=== PATIENT | female | born 1995 | race Caucasian/White ===

== ENCOUNTER 2018-02-26 11:04 | Emergency (ER) | payer OTHER ==
[~2018-02-26] VITALS: Ht 162.6 cm; Wt 50.0 kg
[~2018-02-26 11:04] MED LIST: GI COCKTAIL PO; PROT40TA PO
[2018-02-26 11:15] VITALS: BP 115/70; PULSE 68; RESP 15; TEMP 97.5; O2SAT 100
[2018-02-26] MEDS ORDERED: diphenhydrAMINE HCL 50 MG/ML VIAL IV PUSH ONE (11:30)
[2018-02-26] MEDS ORDERED: PROCHLORPERAZINE INJ 10 MG/2 ML VIAL IV PUSH ONE (11:30)
[2018-02-26] MEDS ORDERED: SODIUM CHLOR 0.9% 1000 ML INJ 1,000 ML IV ONE (11:30)
--- NOTE | 2018-02-26 11:43 | PD ---
HPI . Abdominal pain Chief Complaint: GI Complaint Time Seen by Provider: 11:28 Travel History International Travel<30 days: No Contact w/Intl Traveler<30days: No Traveled to known affect area: No History of Present Illness HPI This patient presents with chief complaint of abdominal pain. Acute onset was today. Progression is constant. It is upper abdominal pain which she describes as cramping and rates at 8/10. Associated symptoms include nausea and one loose stool. PFSH Past Medical History Medical History: Denies Significant Hx Diminished Hearing: No GERD: Yes (HX IBS AND GASTRITIS) Immunizations Current: Yes (UTD WITH SCHOOL SHOTS.) ?: Not LMP: 01/2018 Past Surgical History Surgical History: No Previous Surgery Social History Alcohol Use: No Tobacco Use: Yes (10/26 PPD) Substance Use: No Allergies-Medications (Allergen,Severity, Reaction): Coded Allergies: No Known Allergies (Verified Adverse Reaction, Unknown, 02/26/18) Reported Meds & Prescriptions Reported Meds & Active Scripts Active No Active Prescriptions or Reported Medications Review of Systems Except as stated in HPI: all other systems reviewed are Neg General / Constitutional: No: Fever, Chills Gastrointestinal: Positive: Nausea, Diarrhea, Abdominal Pain, No: Vomiting Genitourinary: No: Urgency, Frequency, Dysuria Physical Exam Narrative GENERAL: Patient is lying on the bed moaning with an older female at the bedside. SKIN: warm/dry. Normal color and turgor. HEAD: Normocephalic. Atraumatic. EYES: Pupils equal and round. No scleral icterus. No injection or drainage. ENT: No nasal bleeding or discharge. Mucous membranes pink and moist. NECK: Trachea midline. Full range of motion without pain.. CARDIOVASCULAR: Regular rate and rhythm. Heart sounds normal. RESPIRATORY: No accessory muscle use. Clear to auscultation. Breath sounds equal bilaterally. GASTROINTESTINAL: Abdomen soft and nontender to deep palpation using the stethoscope. However, when palpating with my hand, she guards and complains of diffuse tenderness. Bowel sounds present. Nondistended. MUSCULOSKELETAL: No obvious deformities. NEUROLOGICAL: Awake and alert. No obvious cranial nerve deficits. Motor grossly within normal limits. Normal speech. PSYCHIATRIC: Appropriate mood and affect; insight and judgment normal. Data Data Last Documented VS Vital Signs Date Time Temp Pulse Resp B/P (MAP) Pulse Ox O2 Delivery O2 Flow Rate FiO2 5/7/18 11:15 97.5 68 15 115/70 (85) 100 Orders Orders Ed Urine Pregnancytest Poc (02/26/18 11:28) ^ Saline Lock (02/26/18 11:28) Diphenhydramine Inj (Benadryl Inj) (02/26/18 11:30) Prochlorperazine Inj (Compazine Inj) (02/26/18 11:30) Sodium Chlor 0.9% 1000 Ml Inj (Ns 1000 M (02/26/18 11:30) Comprehensive Metabolic Panel (02/26/18 11:38) Complete Blood Count With Diff (02/26/18 11:38) Lipase (02/26/18 11:38) Ct Abd/Pel W Iv Contrast(Rout) (02/26/18 12:35) Iohexol 350 Inj (Omnipaque 350 Inj) (02/26/18 13:28) Labs Laboratory Tests Test 02/26/18 11:55 White Blood Count 20.6 TH/MM3 Red Blood Count 4.77 MIL/MM3 Hemoglobin 14.0 GM/DL Hematocrit 40.8 % Mean Corpuscular Volume 85.6 FL Mean Corpuscular Hemoglobin 29.4 PG Mean Corpuscular Hemoglobin Concent 34.4 % Red Cell Distribution Width 13.0 % Platelet Count 193 TH/MM3 Mean Platelet Volume 9.6 FL Neutrophils (%) (Auto) 88.0 % Lymphocytes (%) (Auto) 6.3 % Monocytes (%) (Auto) 5.2 % Eosinophils (%) (Auto) 0.1 % Basophils (%) (Auto) 0.4 % Neutrophils # (Auto) 18.1 TH/MM3 Lymphocytes # (Auto) 1.3 TH/MM3 Monocytes # (Auto) 1.1 TH/MM3 Eosinophils # (Auto) 0.0 TH/MM3 Basophils # (Auto) 0.1 TH/MM3 CBC Comment DIFF FINAL Differential Comment Blood Urea Nitrogen 12 MG/DL Creatinine 0.74 MG/DL Random Glucose 121 MG/DL Total Protein 6.9 GM/DL Albumin 4.4 GM/DL Calcium Level 9.0 MG/DL Alkaline Phosphatase 57 U/L Aspartate Amino Transf (AST/SGOT) 14 U/L Alanine Aminotransferase (ALT/SGPT) 18 U/L Total Bilirubin 0.3 MG/DL Sodium Level 137 MEQ/L Potassium Level 3.7 MEQ/L Chloride Level 107 MEQ/L Carbon Dioxide Level 20.4 MEQ/L Anion Gap 10 MEQ/L Estimat Glomerular Filtration Rate 96 ML/MIN Lipase 92 U/L [facility] Medical Decision Making Medical Screen Exam Complete: Yes Emergency Medical Condition: Yes Differential Diagnosis Differential diagnosis of abdominal pain includes but is not limited to gastritis, pancreatitis, hepatitis, gastroenteritis, constipation, urinary retention, peptic ulcer disease, diverticulitis or appendicitis Narrative Course This patient presents complaining with the acute onset of upper abdominal pain. Her abdominal exam is benign using a stethoscope. However, she guards when I use my hand. I doubt a significant etiology for her abdominal pain. CBC & BMP Diagram 02/26/18 11:55 Total Protein 6.9, Albumin 4.4, Calcium Level 9.0, Alkaline Phosphatase 57, Aspartate Amino Transf (AST/SGOT) 14 L, Alanine Aminotransferase (ALT/SGPT) 18, Total Bilirubin 0.3 Because of the leukocytosis, a CT was done. Last Impressions Abdomen/Pelvis CT 02/26/18 1235 Signed Impressions: Service Date/Time: Monday, February 26, 2018 13:17 - CONCLUSION: Trace fluid in cul-de-sac with cystic areas in both adnexal regions. Pelvic inflammatory process is suspected. Nicanor Singer MD FACR A GC chlamydial probe will be done on her urine. She will be treated presumptively for PID. Diagnosis Primary Impression: Abdominal pain Qualified Codes: R10.10 - Upper abdominal pain, unspecified Additional Impression: Pelvic inflammatory disease Patient Instructions: General Instructions, Pelvic Inflammatory Disease (DC) Med/Other Pt SpecificInfo: Prescription(s) given Scripts Metronidazole (Flagyl) 500 Mg Tab 500 MG PO BID for Infection for 7 Days, #14 TAB 0 Refills Prov: Mariah Ibrahim MD 02/26/18 Doxycycline Hyclate (Doxycycline Hyclate) 100 Mg Cap 100 MG PO BID for Infection, #20 CAP 0 Refills Prov: Mariah Ibrahim MD 02/26/18 Disposition: 01 DISCHARGE HOME Condition: Stable Mariah Ibrahim MD February 26, 2018 11:43
[2018-02-26 12:21] LABS: AUTOMATED NEUTROPHIL # 18.1 TH/MM3 (1.8-7.7); BASOPHIL # 0.1 TH/MM3 (0-0.2); BASOPHIL % 0.4 % (0.0-2.0); EOSINOPHIL % 0.1 % (0.0-4.0); HEMATOCRIT 40.8 % (35.0-46.0); LYMPH % 6.3 % (9.0-44.0); LYMPHOCYTE # 1.3 TH/MM3 (1.0-4.8); MEAN CELL VOLUME 85.6 FL (80.0-100.0); MEAN CORPUSCULAR HEMOGLOBIN 29.4 PG (27.0-34.0); MEAN CORPUSCULAR HGB CONC 34.4 % (32.0-36.0); MEAN PLATELET VOLUME 9.6 FL (7.0-11.0); MONO % 5.2 % (0.0-8.0); MONOCYTE # 1.1 TH/MM3 (0-0.9); PLATELET COUNT 193 TH/MM3 (150-450); RED BLOOD COUNT 4.77 MIL/MM3 (4.00-5.30); WHITE BLOOD COUNT 20.6 TH/MM3 (4.0-11.0)
[2018-02-26 12:59] LABS: ALBUMIN 4.4 GM/DL (3.4-5.0); BLOOD UREA NITROGEN 12 MG/DL (7-18); CREATININE 0.74 MG/DL (0.50-1.00); GLOMERULAR FILTRATION RATE 96 ML/MIN (>89); GLUCOSE,RANDOM 121 MG/DL (74-106); TOTAL PROTEIN 6.9 GM/DL (6.4-8.2)
[2018-02-26 13:00] LABS: ALKALINE PHOSPHATASE 57 U/L (45-117); ALT (GPT) 18 U/L (10-53); AST (GOT) 14 U/L (15-37); BICARBONATE 20.4 MEQ/L (21.0-32.0); CHLORIDE 107 MEQ/L (98-107); SODIUM (NA) 137 MEQ/L (136-145); TOTAL BILIRUBIN ADULT 0.3 MG/DL (0.2-1.0)
[2018-02-26] MEDS ORDERED: IOHEXOL 350 MG/ML 10 ML VIAL (for RAD DIAG) IVCONTRAST ONE (13:28)
--- NOTE | 2018-02-26 13:41 | RADRPT ---
EXAM DATE/TIME: 02/26/2018 13:17 [facility] COMPARISON: CT ABDOMEN & PELVIS W CONTRAST, March 05, 2015, 14:09. INDICATIONS : Patient complains of abdominal pain with nausea. IV CONTRAST: 92 cc Omnipaque 350 (iohexol) IV ORAL CONTRAST: No oral contrast ingested. RADIATION DOSE: 5.43 CTDIvol (mGy) MEDICAL HISTORY : Gerd SURGICAL HISTORY : None. ENCOUNTER: Initial ACUITY: 1 day PAIN SCALE: 8/10 LOCATION: abdomen TECHNIQUE: Volumetric scanning of the abdomen and pelvis was performed. Using automated exposure control and ad justment of the mA and/or kV according to patient size, radiation dose was kept as low as reasonably achievable to obtain optimal diagnostic quality images. DICOM format image data is available electro nically for review and comparison. FINDINGS: Lower lungs are clear. Liver, spleen, pancreas and adrenals unremarkable Bowel and mesentery is unremarkable Pelvis there is some mildly dilated loops of small bowel with trace fluid in the cul-de-sac. Small c ystic areas are seen in both adnexal regions. There is no adenopathy Review of bone windows only degenerative changes. CONCLUSION: Trace fluid in cul-de-sac with cystic areas in both adnexal regions. Pelvic inflammatory process is suspected. Nicanor Singer MD FACR on February 26, 2018 at 13:35 Board Certified Radiologist. This report was verified electronically.
[2018-02-26] MEDS ORDERED: METR-1 PO (14:01)
[2018-02-26] MEDS ORDERED: DOXY100C PO (14:01)
[2018-02-26] MEDS ORDERED: cefTRIAXone INJ 1,000 MG in SODIUM CHLORIDE 0.9% INJ 100 ML IV ONE (14:15)
== END 2018-02-26 14:34 | disposition home or self-care (01) ==
LOC: NEPD 11:04
DX: R10.10 Upper abdominal pain, unspecified (principal); N73.9 Female pelvic inflammatory disease, unspecified; F17.210 Nicotine dependence, cigarettes, uncomplicated
CPT/HCPCS: 74177; 80053; 83690; 84703; 85025; 96361; 96365; 96375; 99284; J0696; J0780; J1200; J7030; Q9967